=== PATIENT | female | born 1945 | race Caucasian/White ===

== ENCOUNTER → 2018-02-07 | Outpatient (CLI) | payer MEDICARE ==
[~2018-02-07] MED LIST: ASPI-621 PO; ATOR10TA9 PO; DOCU-131 PO; METO25TA91 PO; OMEP-110 PO; REGADENOSON 0.4 MG/5 ML SYRINGE ONE; ROSU5TAB PO; TICA90TA PO; [UNRECOGNIZED DRUG - OTHER] PO
== END | disposition home or self-care (01) ==
LOC: CFH 12:24
PROVIDERS: ATTEND Internal Medicine Cardiovascular Disease
DX: I25.10 Atherosclerotic heart disease of native coronary artery without angina pectoris (principal)
CPT/HCPCS: 78452; 93017; A9502; J2785

== ENCOUNTER 2019-02-15 13:28 | Outpatient (CLI) | payer MEDICARE ==
[~2019-02-15 13:28] MED LIST changes: -ASPI-621 PO; +ASPI81TA45 PO; -REGADENOSON 0.4 MG/5 ML SYRINGE ONE
== END 2019-02-15 23:59 | disposition home or self-care (01) ==
LOC: CFH 13:28
PROVIDERS: ATTEND Internal Medicine Cardiovascular Disease
DX: I08.8 Other rheumatic multiple valve diseases (principal); I10 Essential (primary) hypertension; E78.5 Hyperlipidemia, unspecified; Z98.61 Coronary angioplasty status
CPT/HCPCS: 93306

== ENCOUNTER 2019-10-02 16:07 | Emergency (ER) | payer MEDICARE ==
[~2019-10-02] VITALS: Ht 162.6 cm; Wt 84.1 kg
--- NOTE | 2019-10-02 16:40 | NUR ---
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 PT REPORTS 3 CARDIAC STENTS PLACED IN 2017, CURRENTLY TAKES METOPROLOL. PT DENIES S/S. PT RESTING ON GURNEY W/ CALL LIGHT IN REACH, CONNECTED TO MONITORING. PT BRADYCARDIC, OTHER VS WDL. NADN. NORMA WEBBER AT BEDSIDE FOR ED EVAL.
[2019-10-02 18:02] LABS: ALBUMIN 3.3 g/dL (3.4-5.0); ANION GAP 2 mmol/L (5-15); BASOPHILS # (AUTO) 0.02 x10^3/uL (0-0.1); BASOPHILS % (AUTO) 0 % (0-1); CALCIUM 9.3 mg/dL (8.5-10.1); CHLORIDE 110 mmol/L (98-107); CREATININE 0.82 mg/dL (0.55-1.02); EOSINOPHILS # (AUTO) 0.09 x10^3/uL (0-0.4); EOSINOPHILS % (AUTO) 2 % (1-7); LYMPHOCYTES # (AUTO) 1.15 x10^3/uL (1-3.4); LYMPHOCYTES % (AUTO) 22 % (22-44); MD NO; MEAN CORPUSCULAR HEMOGLOBIN 29.4 pg (27.0-34.8); MEAN CORPUSCULAR HGB CONC 33.1 g/dL (32.4-35.8); MEAN CORPUSCULAR VOLUME 88.7 fL (80-100); MEAN PLATELET VOLUME 8.6 fL (7.4-10.4); MONOCYTES # (AUTO) 0.35 x10^3/uL (0.2-0.8); MONOCYTES % (AUTO) 7 % (2-9); NEUTROPHILS # (AUTO) 3.53 x10^3/uL (1.8-6.8); NEUTROPHILS % (AUTO) 69 % (42-75); PLATELET COUNT 190 x10^3/uL (130-400); RED CELL DISTRIBUTION WIDTH 13.2 % (9.6-15.2)
[2019-10-02 18:04] VITALS: BP 136/97
[2019-10-02 18:05] LABS: TROPONIN I < 0.015 ng/mL (0.000-0.045)
--- NOTE | 2019-10-02 18:12 | NUR ---
ALL TESTS RESULTED. PT IS UP FOR RECHECK AT THIS TIME. PT BRADYCARDIC, OTHER VS WDL. NADN.
== END 2019-10-02 19:51 | disposition home or self-care (01) ==
LOC: ED 19:44
DX: R00.1 Bradycardia, unspecified (principal); R07.9 Chest pain, unspecified; E78.5 Hyperlipidemia, unspecified; Z90.710 Acquired absence of both cervix and uterus; Z87.891 Personal history of nicotine dependence; Z98.61 Coronary angioplasty status
CPT/HCPCS: 36415; 71045; 80048; 82040; 83605; 84484; 85025; 93005; 99285

== ENCOUNTER → 2020-01-31 | Outpatient (CLI) | payer MEDICARE | END | disposition home or self-care (01) | LOC: CFH 08:12 | PROVIDERS: ATTEND Internal Medicine Cardiovascular Disease | DX: I25.10 Atherosclerotic heart disease of native coronary artery without angina pectoris (principal); R07.9 Chest pain, unspecified | CPT/HCPCS: 78452; 93017; A9502 ==